=== PATIENT | male | born 2000 | race Caucasian/White ===

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

== ENCOUNTER 2020-11-13 15:02 | Outpatient (CLI) | payer BC | END 2020-11-13 15:03 | disposition home or self-care (01) | LOC: COV 15:02 | PROVIDERS: ATTEND Family Medicine | DX: Z20.828 Contact with and (suspected) exposure to other viral communicable diseases (principal) ==

== ENCOUNTER 2022-06-13 17:53 | Outpatient (CLI) | payer BC | END 2022-06-13 17:54 | disposition EMS.NT | LOC: EMS 17:53 | DX: S50.812A Abrasion of left forearm, initial encounter (principal); V46.5XXA Car driver injured in collision with other nonmotor vehicle in traffic accident, initial encounter; Y93.89 Activity, other specified; Y92.410 Unspecified street and highway as the place of occurrence of the external cause ==